=== PATIENT | male | born 1960 | race Caucasian/White ===

== ENCOUNTER 2017-01-23 15:01 | Observation (INO) | payer OTHER ==
[~2017-01-23] VITALS: Ht 180.3 cm; Wt 122.0 kg
[~2017-01-23 15:01] MED LIST: Ecotrin PO; Glucophage PO; PRAVACHOL80 MG PO; TRICOR145 MG PO
[2017-01-23 15:35] LABS: HEMATOCRIT 48.1 % (38.0-50.0); MCH 29.9 PG (29.0-34.0); MCHC 34.9 G/DL (30.0-36.0); MCV 85.6 FL (86-99); MEAN PLAT.VOLUME 10.6 uM^3 (9.0-12.4); PLATELET COUNT 213 K/uL (156-360); RBC DIS.WIDTH-CV 13.2 % (11.8-14.6); RED BLOOD COUNT 5.62 M/uL (4.00-5.50); WHITE BLOOD COUNT 10.2 K/uL (4.1-10.2)
[2017-01-23 15:45] LABS: CHLORIDE 99 mEq/L (99-109); POTASSIUM 3.4 mEq/L (3.7-5.4); SODIUM 137 mEq/L (136-147)
[2017-01-23 15:46] LABS: GLUCOSE 143 mg/dL (70-99)
[2017-01-23 15:48] LABS: ANION GAP 14 MEQ/L (2-14)
[2017-01-23 15:50] LABS: GFR ESTIMATE (CALCULATED) > 59 mL/min/
[2017-01-23 15:51] LABS: UREA NITROGEN (BUN) 8 mg/dL (9-23)
[2017-01-23 15:56] LABS: TROP-I INTERPRETATION NEGATIVE; TROPONIN-I < 0.01 ng/mL (0.0-0.30)
[2017-01-23] MEDS ORDERED: CLARITIN,ALAVAR10 MG PO (18:54)
[2017-01-23 20:15] VITALS: BP 139/85
[2017-01-23 20:22] LABS: TOTAL BILIRUBIN 0.8 mg/dL (0.0-1.0)
[2017-01-23 20:23] LABS: ALKALINE PHOSPHATASE 84 IU/L (3-129)
[2017-01-23 20:26] LABS: DIRECT BILIRUBIN 0.2 mg/dL (0.0-0.3)
[2017-01-23 20:27] LABS: LIPASE 6 U/L (1.0-51.0)
[2017-01-23 20:30] LABS: D-DIMER ELISA 0.49 mg/L FEU (< 0.57)
[2017-01-23 22:39] LABS: TROP-I INTERPRETATION NEGATIVE; TROPONIN-I < 0.01 ng/mL (0.0-0.30)
[2017-01-24 00:45] VITALS: BP 126/79
[2017-01-24 04:42] VITALS: BP 139/83
[2017-01-24 04:54] LABS: TROP-I INTERPRETATION NEGATIVE; TROPONIN-I 0.01 ng/mL (0.0-0.30)
[2017-01-24 07:38] VITALS: BP 144/78
[2017-01-24] MEDS ORDERED: ASPIR-LOW81 MG PO (09:11)
[2017-01-24 10:17] LABS: Estimated Average Glucose 151 mg/dL (70-123); HEMOGLOBIN A1c (GLYCOHEMOGLOB) 6.9 % HGB (Below 5.7)
== END 2017-01-24 11:40 | disposition home or self-care (01) ==
LOC: EME 15:01 → 5WEST 18:44 → EDOF 18:44 → 5WEST 20:11
PROVIDERS: Hospitalist
DX: R07.89 Other chest pain (principal); R11.2 Nausea with vomiting, unspecified; E11.9 Type 2 diabetes mellitus without complications; E78.5 Hyperlipidemia, unspecified; Z91.128 Patient's intentional underdosing of medication regimen for other reason; T38.3X6A Underdosing of insulin and oral hypoglycemic [antidiabetic] drugs, initial encounter; E66.9 Obesity, unspecified; Z68.37 Body mass index [BMI] 37.0-37.9, adult
CPT/HCPCS: 71020; 80048; 80076; 83036; 83690; 84484; 85027; 85379; 93005; G0378; J2405